=== PATIENT | female | born 1940 | race Caucasian/White ===

== ENCOUNTER → 2023-11-21 | Emergency (ER) | payer OTHER ==
[~2023-11-21] MED LIST: ALBUTEROL 2.5 MG/3 ML NEB SOL ONE; CEFTRIAXONE 1000 MG/VIAL ONE; HYDROCODONE/CHLORPHEN 5 ML/OSYR ONE; NA CHLORIDE 0.9% 50 ML ONE
--- NOTE | 2023-11-21 13:07 | RAD REPORT ---
EXAM DESCRIPTION: RAD - Chest Single View - 11/21/2023 12:59 pm CLINICAL HISTORY: COUGH Chest pain. COMPARISON: No comparisons FINDINGS: Portable technique limits examination quality. The lungs are emphysematous but grossly clear. The heart is normal in size. No displaced fractures.To rtuous thoracic aorta. IMPRESSION: No acute intrathoracic process suspected.
--- NOTE | 2023-11-21 13:35 | RAD REPORT ---
EXAM DESCRIPTION: CT - Head C Spine Cap Wo Con - 11/21/2023 1:12 pm CLINICAL HISTORY: Trauma, head and neck injury. Chest, abdomen and pelvis pain. fall COMPARISON: Ct Skull/Thigh dated 07/02/2023 TECHNIQUE: CT head without contrast. CT cervical spine without contrast with coronal and sagittal reformatted images. CT chest, abdomen and pelvis without contrast with coronal and sagittal reformatted images of the spi ne. All CT scans are performed using dose optimization technique as appropriate and may include automated exposure control or mA/KV adjustment according to patient size. FINDINGS: CT HEAD WITHOUT CONTRAST: No intracranial hemorrhage, hydrocephalus or extra-axial fluid collection. Mild generalized brain atr ophy is present with mild periventricular and deep white matter chronic microvascular ischemic change s. No areas of brain edema or midline shift. The paranasal sinuses and mastoids are clear. The calvarium is intact. CT CERVICAL SPINE WITHOUT CONTRAST: No fracture or subluxation. 3 mm degenerative anterolisthesis of C4 on 5. Mild lower cervical spondyl osis. The prevertebral soft tissues are normal in thickness. CT CHEST, ABDOMEN, PELVIS WITHOUT CONTRAST: NOTE: Lack of contrast is a significant limitation in the assessment of trauma related findings. Spec ifically, solid organ, vascular and bowel evaluation is significantly limited. Several stable lung nodules are present.No acute lung finding.No pneumothorax or pericardial/pleural fluid. No evidence of intra-abdominal visceral injury, free fluid or free air is seen within the above detai led limitations. Diverticulosis of the sigmoid colon is present. There is a significant degenerative change affecting the thoracolumbar spine with dextroscoliosis. Si gmoid diverticulosis coli without diverticulitis. No fractures. IMPRESSION: Negative for acute traumatic findings within the above detailed limitations.
[2023-11-21 14:20] LABS: Albumin 3.4 g/dL (3.4-5.0); Magnesium 2.3 mg/dL (1.6-2.4); Potassium 3.9 mEq/L (3.5-5.1); Protein, Total 7.4 g/dL (6.4-8.2); Troponin High Sensitivity 33.4 pg/mL (<58.9)
[2023-11-21 14:30] LABS: Absolute Lymphocytes (CBC) 1.3 K/uL (0.7-4.9); Hematocrit 38.5 % (36.0-45.0); Lymphocytes % 18.6 % (15.3-44.8); MCV 87.8 fL (80-100); MPV 9.1 fL (7.6-11.3); Platelets 163 thou/uL (152-406); RBC Red Blood Cell Count 4.39 M/uL (3.86-4.86)
[2023-11-21 14:50] LABS: Protime INR 1.77
--- NOTE | 2023-11-21 14:51 | ER ---
Nurse's Notes [facility] Name: Rama Vasquez Age: 83 yrs Sex: Female : 1940 Arrival Date: 11/21/2023 Time: 12:16 Bed 20 Private MD: Diagnosis: Fall (on) (from) unspecified stairs and steps;COPD/ Chronic obstructive pulmonary disease with (acute) exacerbation Presentation: 11/21 12:33 Chief complaint: Right chest wall pain after fall 3 days ago, cough x 2 days. hb Coronavirus screen: Client presents with at least one sign or symptom that may indicate coronavirus-19. Provider contacted for isolation considerations. Ebola Screen: No symptoms or risks identified at this time. Initial Sepsis Screen: Does the patient meet any 2 criteria? No. Patient's initial sepsis screen is negative. Does the patient have a suspected source of infection? No. Patient's initial sepsis screen is negative. Risk Assessment: Do you want to hurt yourself or someone else? Patient reports no desire to harm self or others. Onset of symptoms was November 18, 2023. 12:33 Method Of Arrival: Ambulatory 12:33 Acuity: BILL 3 hb Triage Assessment: 15:22 General: Appears in no apparent distress. comfortable, Behavior is calm. Pain: db Complains of pain in abdomen. Historical: - Allergies: 12:35 No Known Allergies; hb - Home Meds: 12:35 Jardiance oral [Active]; Bumex Oral [Active]; Amiodarone Oral [Active]; Eliquis oral hb [Active]; - PMHx: 12:35 Atrial fibrillation; CHF; DM2; hb - Immunization history:: Adult Immunizations up to date. - Social history:: Smoking status: Patient denies any tobacco usage or history of. Screenin:51 [facility] [place] ED Fall Risk Assessment (Adult) History of falling in the last 3 months, db including since admission Yes- single mechanical fall (1 pt) Confusion or Disorientation No (0 pts) Intoxicated or Sedated No (0 pts) Impaired Gait Yes (1 pt) Mobility Assist Device Used No (0 pt) Altered Elimination No (0 pt) Score/Fall Risk Level 0 - 2 = Low Risk Oriented to surroundings, Maintained a safe environment. Abuse screen: Denies threats or abuse. Denies injuries from another. Nutritional screening: No deficits noted. Tuberculosis screening: No symptoms or risk factors identified. Assessment: 13:00 Reassessment: Patient appears in no apparent distress at this time. Patient and/or db family updated on plan of care and expected duration. Pain level reassessed. Patient is alert, oriented x 3, equal unlabored respirations, skin warm/dry/pink. General: Appears in no apparent distress. comfortable, Behavior is calm, cooperative. Neuro: Level of Consciousness is awake, alert, obeys commands, Oriented to person, place, time, situation. 13:13 Reassessment: PT IN CT. db 14:00 Reassessment: PATIENT PROVIDED INCENTIVE SPIROMETER. db 15:00 Reassessment: Patient appears in no apparent distress at this time. Patient states db feeling better. Patient states symptoms have improved. Vital Signs: 12:33 BP 133 / 73; Pulse 60; Resp 19 S; Temp 97.9(O); Pulse Ox 98% on R/A; Weight 49.9 kg; hb Height 5 ft. 4 in. ; Pain 8/10; 12:45 BP 120 / 62; Pulse 60; Resp 18; Pulse Ox 96% on R/A; db 13:45 BP 122 / 53; Pulse 67; Resp 18; Pulse Ox 100% on R/A; db 14:30 BP 113 / 51; Pulse 78; Resp 18; Pulse Ox 95% on R/A; db 15:00 BP 118 / 49; Pulse 72; Resp 18; Pulse Ox 94% on R/A; db 12:33 Body Mass Index 18.88 (49.90 kg, 162.56 cm) hb 12:33 Pain Scale: Adult hb Vitals: 12:45 Cardiac Rhythm Assessment Regular. db ED Course: 12:20 Patient arrived in ED. mg5 12:22 [facility] snw 12:22 Toby Guillory MD is Attending Physician. snw 12:24 Dana Ventura, DOMINGO is Primary Nurse. db 12:35 Triage completed. hb 12:36 Arm band placed on. hb 13:01 Chest Single View XRAY In Process Unspecified. EDMS 13:13 Head C Spine Cap Wo Con In Process Unspecified. EDMS 13:30 First set of blood cultures drawn. db 13:45 EKG done, by ED staff. Inserted saline lock: 22 gauge in right forearm, using aseptic jg11 technique. Blood collected. 13:45 Second set of blood cultures drawn by me. db 13:51 Patient has correct armband on for positive identification. Bed in low position. Call db light in reach. Side rails up X2. Client placed on continuous cardiac and pulse oximetry monitoring. NIBP monitoring applied. Warm blanket given. 15:20 Provided Education on: DISCHARGE. db 15:20 No provider procedures requiring assistance completed. IV discontinued, intact, db bleeding controlled, No redness/swelling at site. Administered Medications: 13:15 Drug: Albuterol Inhalation 2.5 mg Inhalation every 20 minutes x3 Route: Inhalation; db 13:30 Drug: Albuterol Inhalation 2.5 mg Inhalation every 20 minutes x3 Route: Inhalation; db 13:45 Drug: Albuterol Inhalation 2.5 mg Inhalation every 20 minutes x3 Route: Inhalation; db 13:59 Drug: Tussionex Pennkinetic ER PO Suspension 5 ml PO once Route: PO; db 15:00 Follow up: Response: No adverse reaction db 14:55 Drug: Rocephin IV 1 grams IV at calculated rate once; Given slow IV push per pharmacy db instructions Route: IV; Rate: calculated rate; Site: right forearm; Medication: 12:45 VIS not applicable for this client. db Outcome: 14:50 Discharge ordered by . irene 15:20 Discharged to home via wheelchair, with family, db 15:20 Condition: stable 15:20 Discharge instructions given to patient, family, Instructed on discharge instructions, Prescriptions given X 4, 15:22 Patient left the ED. db Signatures: Dispatcher [employer] EDIN Desiree Mtz, LEXUS-C OPTICAL SCIENTIST-Csnw Evangelina Coffman, RN RN Dana Scales, RN RN Ragini Alvares 5 Homero Worthy [email or web address]
--- NOTE | 2023-11-21 14:51 | EDPHYS ---
Physician Documentation [facility] Name: Rama Vasquez Age: 83 yrs Sex: Female : 1940 Arrival Date: 11/21/2023 Time: 12:16 Bed 20 Private MD: ED Physician Toby Guillory HPI: 11/21 14:58 This 83 yrs old Female presents to ER via Ambulatory with complaints of Fall Injury, snw Cough. 14:58 Details of fall: The patient fell from a height, bed. Onset: The symptoms/episode snw began/occurred suddenly, slipped off bed today. Associated injuries: The patient sustained injury to the chest, specifically the right lateral anterior chest, tenderness. Severity of symptoms: At their worst the symptoms were moderate. It is unknown whether or not the patient has had similar symptoms in the past. The patient has not recently seen a physician. + wet cough x 2-3 days. Historical: - Allergies: 12:35 No Known Allergies; hb - Home Meds: 12:35 Jardiance oral [Active]; Bumex Oral [Active]; Amiodarone Oral [Active]; Eliquis oral hb [Active]; - PMHx: 12:35 Atrial fibrillation; CHF; DM2; hb - Immunization history:: Adult Immunizations up to date. - Social history:: Smoking status: Patient denies any tobacco usage or history of. ROS: 12:59 Eyes: Negative for injury, pain, redness, and discharge, ENT: Negative for injury, snw pain, and discharge, Neck: Negative for injury, pain, and swelling, Cardiovascular: Negative for chest pain, palpitations, and edema, 12:59 Abdomen/GI: Negative for abdominal pain, nausea, vomiting, diarrhea, and constipation, Back: Negative for injury and pain, : Negative for injury, bleeding, discharge, and swelling, MS/Extremity: Negative for injury and deformity, Skin: Negative for injury, rash, and discoloration, Neuro: Negative for headache, weakness, numbness, tingling, and seizure, Psych: Negative for depression, anxiety, suicide ideation, homicidal ideation, and hallucinations, 12:59 Constitutional: Positive for body aches, 12:59 Constitutional: Positive for "slipped off bed this am", 12:59 Respiratory: Positive for cough, "sounds productive", Exam: 12:53 Head/Face: Normocephalic, atraumatic. Eyes: Pupils equal round and reactive to light, snw extra-ocular motions intact. Lids and lashes normal. Conjunctiva and sclera are non-icteric and not injected. Cornea within normal limits. Periorbital areas with no swelling, redness, or edema. ENT: Nares patent. No nasal discharge, no septal abnormalities noted. Tympanic membranes are normal and external auditory canals are clear. Oropharynx with no redness, swelling, or masses, exudates, or evidence of obstruction, uvula midline. Mucous membranes moist. Neck: Trachea midline, no thyromegaly or masses palpated, and no cervical lymphadenopathy. Supple, full range of motion without nuchal rigidity, or vertebral point tenderness. No Meningismus. Chest/axilla: Normal chest wall appearance and motion. Nontender with no deformity. No lesions are appreciated. Cardiovascular: Regular rate and rhythm with a normal S1 and S2. No gallops, murmurs, or rubs. Normal PMI, no JVD. No pulse deficits. 12:53 Abdomen/GI: Soft, non-tender, with normal bowel sounds. No distension or tympany. No guarding or rebound. No evidence of tenderness throughout. Back: No spinal tenderness. No costovertebral tenderness. Full range of motion. Skin: Warm, dry with normal turgor. Normal color with no rashes, no lesions, and no evidence of cellulitis. MS/ Extremity: Pulses equal, no cyanosis. Neurovascular intact. Full, normal range of motion. Neuro: Awake and alert, GCS 15, oriented to person, place, time, and situation. Cranial nerves II-XII grossly intact. Motor strength 5/5 in all extremities. Sensory grossly intact. Cerebellar exam normal. Normal gait. Psych: Awake, alert, with orientation to person, place and time. Behavior, mood, and affect are within normal limits. 12:53 Constitutional: The patient appears alert, awake, frail, uncomfortable, 12:53 Respiratory: the patient does not display signs of respiratory distress, Respirations: shallow respirations, Breath sounds: bronchial sounds, that are moderate, wet cough, tenderness to palpation of anterior inferior right ribs , Vital Signs: 12:33 BP 133 / 73; Pulse 60; Resp 19 S; Temp 97.9(O); Pulse Ox 98% on R/A; Weight 49.9 kg; hb Height 5 ft. 4 in. ; Pain 8/10; 12:45 BP 120 / 62; Pulse 60; Resp 18; Pulse Ox 96% on R/A; db 13:45 BP 122 / 53; Pulse 67; Resp 18; Pulse Ox 100% on R/A; db 14:30 BP 113 / 51; Pulse 78; Resp 18; Pulse Ox 95% on R/A; db 15:00 BP 118 / 49; Pulse 72; Resp 18; Pulse Ox 94% on R/A; db 12:33 Body Mass Index 18.88 (49.90 kg, 162.56 cm) hb 12:33 Pain Scale: Adult hb MDM: 12:23 Patient medically screened. snw 13:04 Differential diagnosis: closed head injury, fracture. Data reviewed: vital signs, w nurses notes. 14:59 I considered the following discharge prescriptions or medication management in the [facility] emergency department Medications were administered in the Emergency Department. See MAR. Historians other than the Patient: Daughter/Son: Daughter. Care significantly affected by the following chronic conditions: Diabetes, Hypertension, Congestive Heart Failure. Counseling: I had a detailed discussion with the patient and/or guardian regarding the historical points, exam findings, and any diagnostic results supporting the discharge/admit diagnosis, lab results, radiology results, the need for outpatient follow up, for definitive care, to return to the emergency department if symptoms worsen or persist or if there are any questions or concerns that arise at home. Response to treatment: the patient's symptoms have markedly improved after treatment. Special discussion: denies chest pain. ED course: Daughter states pt is back to baseline. Needs albuterol neb refills.. 11/21 12:31 Order name: Blood Culture Adult (2) w 11/21 12:31 Order name: CBC with Diff; Complete Time: 14:35 snw 11/21 12:31 Order name: CMP; Complete Time: 14:25 snw 11/21 12:31 Order name: Lactate w/ 2H reflex if indic.; Complete Time: 14:25 snw 11/21 12:31 Order name: Protime (+inr); Complete Time: 14:52 snw 11/21 12:31 Order name: Ptt, Activated; Complete Time: 14:52 w 11/21 12:31 Order name: Basic Metabolic Panel snw 11/21 12:31 Order name: Magnesium; Complete Time: 14:25 snw 11/21 12:31 Order name: NT PRO-BNP; Complete Time: 14:25 snw 11/21 12:31 Order name: Troponin HS; Complete Time: 14:25 snw 11/21 12:31 Order name: Chest Single View XRAY; Complete Time: 13:11 snw 11/21 13:05 Order name: Head C Spine Cap Wo Con; Complete Time: 13:39 EDMS 11/21 13:12 Order name: INCENTIVE SPIROMETRY snw 11/21 12:31 Order name: EKG; Complete Time: 12:32 snw 11/21 12:31 Order name: Cardiac monitoring; Complete Time: 12:32 snw 11/21 12:31 Order name: EKG - Nurse/Tech; Complete Time: 13:49 snw 11/21 12:31 Order name: IV Saline Lock - Large Bore; Complete Time: 13:49 snw 11/21 12:31 Order name: Labs collected and sent; Complete Time: 13:49 snw 11/21 12:31 Order name: O2 Per Protocol; Complete Time: 13:49 snw 11/21 12:31 Order name: O2 Sat Monitoring; Complete Time: 13:49 snw 11/21 12:31 Order name: Vital Signs; Complete Time: 13:49 snw 11/21 12:31 Order name: IV Saline Lock; Complete Time: 13:52 snw EC:35 Rate is 61 beats/min. Rhythm is regular. QRS [place] is Normal. QRS interval is prolonged. snw Clinical impression: NSR w/ Non-specific ST/T Changes. Administered Medications: 13:15 Drug: Albuterol Inhalation 2.5 mg Inhalation every 20 minutes x3 Route: Inhalation; db 13:30 Drug: Albuterol Inhalation 2.5 mg Inhalation every 20 minutes x3 Route: Inhalation; db 13:45 Drug: Albuterol Inhalation 2.5 mg Inhalation every 20 minutes x3 Route: Inhalation; db 13:59 Drug: Tussionex Pennkinetic ER PO Suspension 5 ml PO once Route: PO; db 15:00 Follow up: Response: No adverse reaction db 14:55 Drug: Rocephin IV 1 grams IV at calculated rate once; Given slow IV push per pharmacy db instructions Route: IV; Rate: calculated rate; Site: right forearm; Disposition Summary: 11/21/23 14:50 Discharge Ordered Notes: Location: Home snw Condition: Stable snw Diagnosis - Fall (on) (from) unspecified stairs and steps snw - COPD/ Chronic obstructive pulmonary disease with (acute) exacerbation snw Followup: snw - With: Emergency Department - When: As needed - Reason: Worsening of condition Followup: snw - With: Private Physician - When: 2 - 3 days - Reason: Recheck today's complaints, Continuance of care, Re-evaluation by your physician Discharge Instructions: - Discharge Summary Sheet snw - Chronic Obstructive Pulmonary Disease Exacerbation snw - How to Use an Incentive Spirometer snw - Cough, Adult snw - Incentive Spirometer Record snw Forms: - Medication Reconciliation Form snw - Thank You Letter snw - Antibiotic Education snw - Prescription Opioid Use snw - Patient Portal Instructions snw - Leadership Thank You Letter snw Prescriptions: - albuterol sulfate 2.5 mg /3 mL (0.083 %) Inhalation Solution for Nebulization - nebulize 3 milliliter INHALATION route every 3 to 4 hours for 14 days; 1 snw Unspecified; Refills: 0, Product Selection Permitted - Zyrtec 10 mg Oral Tablet - take 1 tablet ORAL route once daily As needed; 20 tablet; Refills: 0, Product snw Selection Permitted - Prednisone 20 mg Oral Tablet - take 2 tablets ORAL route once daily for 5 days; 10 tablet; Refills: 0, Product snw Selection Permitted - Zithromax 500 mg Oral Tablet - take 1 tablet ORAL route once daily for 5 days; 5 tablet; Refills: 0, Product snw Selection Permitted Signatures: Dispatcher [employer] EDMS Desiree Mtz PRECINCT CAPTAIN-C PRECINCT CAPTAIN-Csnw Evangelina Coffman RN RN Dana Ventura, DOMINGO RN db Corrections: (The following items were deleted from the chart) 13:05 12:53 Head C Spine MPR Wo Con+CT.RAD.BRZ ordered. EDMS EDMS 13:07 12:32 Chest Abdomen Pelvis Wo Con+CT.RAD.BRZ ordered. EDMS EDMS
[2023-11-21 15:54] VITALS: BP 118/49; TEMP 97.9; O2SAT 94
--- NOTE | 2023-11-23 15:05 | EKG ---
Test Date: 2023-11-21 Test Time: 13:37:19 Box Car Checker: ABRAHAM MEASUREMENT RESULTS: Intervals: Rate: 61 OK: 182 QRSD: 162 QT: 426 QTc: 428 [place]: P: 68 OK: 182 QRS: -64 T: 70 INTERPRETIVE STATEMENTS: Normal sinus rhythm Left axis deviation Left bundle branch block Abnormal ECG No previous ECG available for comparison Electronically Signed On 11-23-23 15:00:18 NURSE EMERGENCY ROOM by Jesus Alberto Walsh
== END ==
LOC: ER 12:16
DX: J44.1 Chronic obstructive pulmonary disease with (acute) exacerbation (principal); W06.XXXA Fall from bed, initial encounter; I50.9 Heart failure, unspecified; I48.91 Unspecified atrial fibrillation; Z79.01 Long term (current) use of anticoagulants; E11.9 Type 2 diabetes mellitus without complications
CPT/HCPCS: 93005; 87040; 85025; 36415; 83735; 85610; 83605; 85730; 84484; 80053; 83880; 70450; 71250; 72125; 71045; J7613; J0696